=== PATIENT | female | born 1955 | race Caucasian/White ===

== ENCOUNTER 2019-02-27 19:10 | Emergency (ER) | payer OTHER ==
[~2019-02-27] VITALS: Ht 162.6 cm; Wt 52.2 kg
== END 2019-02-27 20:33 | disposition home or self-care (01) ==
LOC: ER 19:10
DX: S52.591A Other fractures of lower end of right radius, initial encounter for closed fracture (principal); W18.09XA Striking against other object with subsequent fall, initial encounter; Y93.59 Activity, other involving other sports and athletics played individually; Y92.018 Other place in single-family (private) house as the place of occurrence of the external cause; Y99.8 Other external cause status

== ENCOUNTER 2019-03-04 06:30 | Day surgery (SDC) | payer OTHER ==
[2019-03-04] MEDS ORDERED: CEFADROXIL500 MG PO (11:36)
[2019-03-04] MEDS ORDERED: PERCOCET 5-3251 EACH PO (11:36)
[2019-03-04] MEDS ORDERED: ALEVE220 M1 PO (11:36)
== END 2019-03-04 14:00 | disposition home or self-care (01) ==
LOC: CIR.AMB 06:30
DX: S52.571A Other intraarticular fracture of lower end of right radius, initial encounter for closed fracture (principal)
CPT/HCPCS: 25609; 20902; C1776